=== PATIENT | female | born 1965 | race Caucasian/White ===

== ENCOUNTER → 2016-06-13 | Outpatient (CLI) | payer OTHER ==
[~2016-06-13] MED LIST: A/T/S 2% GEL30 GM TOP; ALBUTEROL MININEB NEB; ALPRAZOLAM PO; AMBIEN PO; AMBIEN10 MG PO; BENZONATATE200 M1 PO; DOC-Q-LACE100 MG PO; DOXYCYCLINE PO; DURAGESIC25 MCG TD; EFFIENT10 MG PO; FAMOTIDINE; HYDROCODON-ACE1 EAC7 PO; LIDODERM30 EA TD; LIPITOR80 MG PO; LISINOPRIL2.5 MG PO; LORTAB 10/500 T1 TAB PO; METOPROLOL TAR25 MG PO; NO MEDICATIONS; NORCO 5/325 TAB1 TAB PO; NORCO1 TAB 10/3 PO; PANCREASE PO; PANTOPRAZOLE SO40 MG PO; PERCOCET5/325 PO; PHENERGAN PO; PHENERGAN25 M1 PO; PHENERGAN25 MG PO; PRILOSEC40 MG PO; PROTONIX PO; REGLAN PO; ROBAXIN PO; ROBAXIN500 MG PO; SIMVASTATIN20 MG PO; SOMA PO; TESSALON PERLE100 M1 PO; TETRACYCLINE PO; TUDORZA PRESS400 MCG IH; VENTOLIN5 MG/ML IH; VICODIN 5/1 TAB 5/50 PO; WELLBUTRIN SR150 MG PO; WELLBUTRIN XL150 M1 PO; XARELTO15 MG PO; XARELTO20 MG PO; ZITHROMAX PO
--- NOTE | ~2016-06-13 | CR181 ---
[facility] A Service of [facility] & [facility] RADIOLOGY TEXT RESULTS PATIENT: SHEFALI GOLDMAN LOCATION: [facility] : [birth year] UNIT #: [id number] AGE: [address]: Florinda Yin SEX: F ORDER DR: [id number] [facility] [address] [place], [place] [address] [id number] O MR#: [id number] Acc #: [id number] NAME: SHEFALI GOLDMAN : 1965 SEX: F STUDY DATE/TIME: 06/13/2016 11:41 UNIT: [facility] ROOM: STUDY DESCRIPTION: CR Lumbar Spine 2 or 3 Views Attending Physician: Porfirio Guido Referring Physician: Porfirio Guido Ordering Physician: Porfirio Guido Primary Care Physician: Coni Carson M.D. MEDICAL IMAGING REPORT This report is preliminary unless electronic signature is present EXAM Lumbosacral spine and 3 views HISTORY Low back pain for 6 weeks. Symptoms beginning in December 2015; the patient fell and broke left leg. FINDINGS AP and lateral views and spot views are submitted. The study shows disc space narrowing at L5-S1 with some increase in reactive sclerosis of the endplates compared with 2008 films. There is some marginal spur formation at L1-L2, L2-L3, and L3-L4. Disc space and vertebral body height is maintained. Alignment is normal. There is evidence of some progressive facet arthrosis particularly at L4-L5 and L5-S1. CONCLUSION Interim progression of degenerative disc disease at L5-S1. Increase in marginal spur formation with preservation of the disc spaces in the more cephalad lumbar levels. Progressive facet disease at L4-L5 and L5-S1. Dictated by... Jhonathan Hanson M.D. THIS IS AN ELECTRONICALLY VERIFIED REPORT Jhonathan Hanson M.D. at 06/14/2016 8:00 AM SHASHA/awa TD: 06/13/2016 14:24 JOB #: [id number] MEDICAL IMAGING REPORT COPY
== END | disposition home or self-care (01) ==
LOC: CRAD 11:27
DX: M51.36 Other intervertebral disc degeneration, lumbar region (principal); M79.605 Pain in left leg; M51.37 Other intervertebral disc degeneration, lumbosacral region; M46.06 Spinal enthesopathy, lumbar region
CPT/HCPCS: 72100

== ENCOUNTER → 2016-08-24 | Outpatient (CLI) | payer OTHER ==
--- NOTE | ~2016-08-24 | MR113 ---
[facility] A Service of [facility] & [facility] RADIOLOGY TEXT RESULTS PATIENT: SHEFALI GOLDMAN [facility] : 65 UNIT #: [id number] AGE: [address]: KARTHKIEYAN QUIROZ MD SEX: F ORDER DR: [id number] [facility] [address] [place], [place] [address] [id number] O MR#: [id number] Acc #: [id number] NAME: SHEFALI GOLDMAN. : 1965 SEX: F STUDY DATE/TIME: 08/24/2016 16:10 UNIT: [facility] ROOM: STUDY DESCRIPTION: MR Lumbar Wo Contrast Attending Physician: Karthikeyan Quiroz M.D. Referring Physician: Karthikeyan Quiroz M.D. Ordering Physician: Karthikeyan Quiroz M.D. Primary Care Physician: Coni Carson M.D. MRI CENTER REPORT This report is preliminary unless electronic signature is present. EXAM Lumbar spine MRI without. HISTORY Patient fell December 2015 and fractured left leg. Patient has low back pain and lumbar degenerative disc disease on plain films. COMMENT MRI of the lumbar spine performed without contrast using routine 1.5T imaging technique. Plain films for comparison from 06/13/2016. There is subtle retrolisthesis of L5 on S1 secondary to loss of intervertebral disc height. The 5-1 disc is desiccated with moderate loss of disc height. The conus medullaris terminates at the upper margin of L2 and is normal. There are predominately type 2 marrow endplate degenerative changes, either side of the 5-1 disc. At L1-2, mild bilateral facet hypertrophy. No canal or foraminal impingement. At L2-3, mild bilateral facet hypertrophy. No canal or foraminal impingement. At L3-4, mild bilateral facet degenerative change, mild ligamentum flavum thickening. No canal or foraminal impingement. At L4-5, moderate left, severe right-side facet arthritis, moderate ligamentum flavum thickening. Mild broad-based posterior disc bulge. The combination of findings result in mild canal stenosis and mass effect on the left lateral recess. There is mild left greater than right inferior foraminal narrowing. [facility] A Service of [facility] & [facility] RADIOLOGY TEXT RESULTS PATIENT: SHEFALI GOLDMAN LOCATION: [facility] : [birth year] UNIT #: [id number] AGE: [address]: KARTHIKEYAN QUIROZ MD SEX: F ORDER DR: At L5-S1, mild facet degenerative change bilaterally, concentric desiccated disc bulge with a superimposed right paramedian protrusion. Mild effacement of the anterior thecal sac. Mild focal mass effect on the right greater than left lateral recess. Mild left and [id number] right inferior foraminal narrowing. IMPRESSION Lumbar degenerative changes are detailed above, most significant appearing radiographically at L4-5, L5-S1. See above and correlate with symptoms. Dictated by... Courtney Box M.D. THIS IS AN ELECTRONICALLY VERIFIED REPORT Courtney Box M.D. at 08/25/2016 5:52 PM ASHLEY/homero TD: 08/25/2016 17:09 JOB #: [id number] MRI CENTER REPORT Page 1 of 1 COPY
== END | disposition home or self-care (01) ==
LOC: CMRI 15:31
DX: M51.36 Other intervertebral disc degeneration, lumbar region (principal); M47.896 Other spondylosis, lumbar region; M47.897 Other spondylosis, lumbosacral region; M43.17 Spondylolisthesis, lumbosacral region; M46.96 Unspecified inflammatory spondylopathy, lumbar region; M51.87 Other intervertebral disc disorders, lumbosacral region
CPT/HCPCS: 72148